=== PATIENT | female | born 1945 | race Caucasian/White ===

== ENCOUNTER → 2017-05-29 | Outpatient (CLI) | payer OTHER, MEDICARE | END | disposition home or self-care (01) | LOC: RAH 12:09 | PROVIDERS: ATTEND Family Medicine | DX: Z12.31 Encounter for screening mammogram for malignant neoplasm of breast (principal) | CPT/HCPCS: 77067 ==

== ENCOUNTER → 2019-04-13 | Outpatient (CLI) | payer OTHER, MEDICARE | END | disposition home or self-care (01) | LOC: RAH 10:31 | PROVIDERS: ATTEND Family Medicine | DX: Z12.31 Encounter for screening mammogram for malignant neoplasm of breast (principal) | CPT/HCPCS: 77067 ==

== ENCOUNTER 2020-08-19 07:30 | Emergency (ER) | payer OTHER, MEDICARE ==
[2020-08-19] MEDS ORDERED: FAMOTIDINE/PF 20 MG/2 ML VIAL IV ONE (08:20)
[2020-08-19] MEDS ORDERED: DiphenhydrAMINE HCL 50 MG/ML VIAL ONE (08:20)
[2020-08-19] MEDS ORDERED: METHYLPREDNISOLONE SOD SUCC 125MG/2ML VIAL ONE (08:20)
== END 2020-08-19 10:11 | disposition home or self-care (01) ==
LOC: EDH 07:30
DX: T78.49XA Other allergy, initial encounter (principal); Z98.51 Tubal ligation status; Z90.710 Acquired absence of both cervix and uterus; X58.XXXA Exposure to other specified factors, initial encounter
CPT/HCPCS: 82948; 96374; 96375; 99284; J1200; J2930; J3490

== ENCOUNTER → 2021-09-25 | Outpatient (CLI) | payer OTHER, MEDICARE | END | disposition home or self-care (01) | LOC: RAH 09:18 | PROVIDERS: ATTEND Family Medicine | DX: Z12.31 Encounter for screening mammogram for malignant neoplasm of breast (principal) | CPT/HCPCS: 77067 ==

== ENCOUNTER 2022-05-28 06:33 | Inpatient (IN) | payer OTHER, MEDICARE ==
[2022-05-28] VITALS (52 sets, daily range): BP systolic 78–126; BP diastolic 32–65
[~2022-05-28] VITALS: Ht 160 cm; Wt 81.6 kg
[2022-05-28] MEDS ORDERED: 0.9%NACL 1000ML 1,000 ML IV ONE ×3 (06:55→08:00)
[2022-05-28] MEDS ORDERED: ONDANSETRON 4MG INJ ONE (06:55)
[2022-05-28] MEDS ORDERED: ACETAMINOPHEN 325 MG TAB ONE (06:55)
[2022-05-28 06:59] LABS: BASOPHILS % (AUTO) 0.4 % (0.0-5.0); EOSINOPHILS % (AUTO) 2.5 % (0.0-8.0); HEMATOCRIT 40.2 % (36-48); LYMPHOCYTES % (AUTO) 17.6 % (21.0-51.0); MEAN CORPUSCULAR HEMOGLOBIN 28.4 pg (27.0-33.0); MEAN CORPUSCULAR HGB CONC 32.3 g/dL (32.0-36.0); MONOCYTES % (AUTO) 2.3 % (3.0-13.0); PLATELET COUNT (AUTO) 157 K/uL (130-400); RED BLOOD CELL COUNT(AUTO) 4.57 MIL/uL (4.00-5.50); RED CELL DISTRIBUTION WIDTH 14.4 % (11.0-15.5); WHITE BLOOD COUNT (AUTO) 5.2 K/uL (4.8-10.8)
[2022-05-28 07:01] LABS: APPEARANCE,URINE CLOUDY (CLEAR); BILIRUBIN,URINE NEGATIVE (NEGATIVE); COLOR,URINE LIGHT-YELLOW (YELLOW); GLUCOSE, URINE (UA) NEGATIVE (NEGATIVE); KETONES,URINE NEGATIVE (NEGATIVE); LEUKOCYTE ESTERASE ,URINE 500 Leu/uL (NEGATIVE); NITRATE,URINE 2+ (NEGATIVE); OCCULT BLOOD,URINE MODERATE (NEGATIVE); PROTEIN,URINE NEGATIVE (NEGATIVE); UROBILINOGEN,URINE 0.2 mg/dL (0.2-1.0)
[2022-05-28 07:19] LABS: BACTERIA,URINE MANY /HPF (None Seen); MUCUS,URINE RARE LPF (None Seen); SQUAMOUS EPITHELIAL CELL,UR RARE /HPF (0-2); WBC,URINE 26-50 /HPF (0-1)
[2022-05-28 07:19] LABS: ALBUMIN 4.1 g/dL (3.5-5.0); CREATININE 0.9 mg/dL (0.5-1.5); TOTAL PROTEIN, SERUM 7.4 g/dL (6.0-8.3)
[2022-05-28 07:30] LABS: INR 0.99 (0.85-1.15); PROTHROMBIN TIME 10.8 SEC (9.6-11.6)
[2022-05-28] MEDS ORDERED: KETOROLAC 30MG VIAL (30MG/ML) IVP STA (08:26)
[2022-05-28] MEDS ORDERED: MORPHINE 4 MG SYG IVP ONE (09:30)
[2022-05-28] MEDS ORDERED: TAMSULOSIN HCL 0.4 MG CAP.ER.24H PO SCH ×2 (09:30→10:00)
[2022-05-28] MEDS ORDERED: ONDANSETRON 4MG INJ IVP ONE (09:30)
[2022-05-28] MEDS ORDERED: ZOSYN 3.375GM +NS 50ML IV ONE (09:30)
[2022-05-28] MEDS ORDERED: HYDRALAZINE 20MG/ML VIAL IV PRN (10:00)
[2022-05-28] MEDS ORDERED: 0.9%NACL 1000ML 1,095 ML IV ONE (10:00)
[2022-05-28] MEDS ORDERED: CLONIDINE HCL 0.1 MG TABLET PO PRN (10:00)
[2022-05-28] MEDS ORDERED: ONDANSETRON 4MG INJ IVP PRN (10:00)
[2022-05-28] MEDS ORDERED: MORPHINE 2 MG SYG IVP PRN (10:00)
[2022-05-28] MEDS ORDERED: POTASSIUM PHOS 15 mMOL+NS250ML IV SCH (10:00)
[2022-05-28] MEDS ORDERED: LACTULOSE 20 GM/30 ML UDCUP PO PRN (10:00)
[2022-05-28] MEDS ORDERED: ACETAMINOPHEN 650 MG SUPPOSITORY RC PRN (10:00)
[2022-05-28] MEDS ORDERED: TEMAZEPAM 15 MG CAPSULE PO PRN (10:00)
[2022-05-28] MEDS ORDERED: MORPHINE 4 MG SYG IVP PRN (10:00)
[2022-05-28] MEDS: LACTATED RINGERS 1000ML 1,000 ML IV SCH ×2 (10:30→20:21)
[2022-05-28] MEDS ORDERED: IOHEXOL-350 50ML VIAL IV ONE (15:55)
[2022-05-28] MEDS ORDERED: PROPOFOL 10 MG/ML 20ML VIAL IV ONE (15:58)
[2022-05-28] MEDS ORDERED: FENTANYL CITRATE PF 50 MCG/1 ML 2ML VIAL ONE ×2 (15:58→16:48)
[2022-05-28] MEDS ORDERED: MIDAZOLAM HCL 1 MG/ML 2ML VIAL ONE (15:58)
[2022-05-28] MEDS ORDERED: ROCURONIUM 10MG/1ML SYR 10 MG/ML ML ONE (16:15)
[2022-05-28] MEDS ORDERED: PHENYLEPHRINE HCL 10 MG/ML 1ML VIAL IV ONE (16:19)
[2022-05-28] MEDS ORDERED: VASOPRESSIN 20 UNITS/ML 1ML VIAL ONE (16:34)
[2022-05-28] MEDS ORDERED: NEOSTIGMINE 5MG/5ML SYR IV ONE (16:43)
[2022-05-28] MEDS ORDERED: GLYCOPYRROLATE 1 MG/5 ML SYRINGE ONE (16:43)
[2022-05-28 16:44] LABS: ABG BASE EXCESS -7.1 mmol/L (-2.0-3.0); ABG HCO3 18.2 mmol/L (21.0-28.0); ABG OXYGEN SATURATION 96.8 % (95.0-99.0); ABG PCO2 36 mmHg (32-45)
[2022-05-28] MEDS ORDERED: KETOROLAC 15MG/ML VIAL (15MG/ML) ONE (17:01)
[2022-05-28] MEDS ORDERED: POTASSIUM CHLORIDE 20MEQ/100ML 100 ML IV PRN (17:30)
[2022-05-28] MEDS ORDERED: LIDOCAINE HCL-MPF 1% 2ML VIAL IV PRN ×2 (17:30)
[2022-05-28] MEDS ORDERED: KCL 20 MEQ ERTAB PO PRN (17:30)
[2022-05-28] MEDS ORDERED: NOREPINEPHRIN 4MG/NS 250ML 250 ML IV SCH (17:30)
[2022-05-28] MEDS: ZOSYN 3.375GM +NS 50ML IV SCH (17:45)
[2022-05-28 18:06] LABS: BASOPHILS % (AUTO) 0.2 % (0.0-5.0); EOSINOPHILS % (AUTO) 0.2 % (0.0-8.0); HEMATOCRIT 30.5 % (36-48); LYMPHOCYTES % (AUTO) 7.1 % (21.0-51.0); MEAN CORPUSCULAR HEMOGLOBIN 28.5 pg (27.0-33.0); MEAN CORPUSCULAR HGB CONC 31.5 g/dL (32.0-36.0); MEAN CORPUSCULAR VOLUME 90.5 fL (79-99); MONOCYTES % (AUTO) 10.2 % (3.0-13.0); NEUTROPHILS % (AUTO) 81.3 % (40.0-77.0); PLATELET COUNT (AUTO) 108 K/uL (130-400); RED BLOOD CELL COUNT(AUTO) 3.37 MIL/uL (4.00-5.50); RED CELL DISTRIBUTION WIDTH 14.5 % (11.0-15.5); WHITE BLOOD COUNT (AUTO) 5.2 K/uL (4.8-10.8)
[2022-05-28 18:25] LABS: CREATININE 0.9 mg/dL (0.5-1.5); POTASSIUM 3.6 mmol/L (3.5-5.1)
[2022-05-28 18:29] LABS: ALBUMIN 2.6 g/dL (3.5-5.0)
[2022-05-28 19:10] LABS: ABG BASE EXCESS -6.9 mmol/L (-2.0-3.0); ABG HCO3 17.7 mmol/L (21.0-28.0); ABG OXYGEN SATURATION 99.4 % (95.0-99.0); ABG PCO2 33 mmHg (32-45)
[2022-05-28] MEDS ORDERED: SODIUM BICARB 50MEQ 50ML VIAL IV STA (19:18)
[2022-05-28] MEDS ORDERED: SODIUM BICARB 50MEQ 50ML VIAL IV PRN (19:30)
[2022-05-28] MEDS: NOREPINEPHRIN 4MG/NS 250ML 250 ML IV SCH (20:20)
[2022-05-28] MEDS ORDERED: CALCIUM GLUC 1GM/10ML VIAL ONE ×2 (20:42→20:43)
[2022-05-28] MEDS: CALCIUM GLUC 1GM 1 GM in 0.9%NACL 100ML 100 ML IV SCH ×2 (20:52→22:27)
[2022-05-28] MEDS ORDERED: 0.9%NACL 100ML 200 ML ONE (20:54)
[2022-05-28] MEDS ORDERED: HYDROCORTISONE SOD SUCCINATE 100 MG/2 ML VIAL IV SCH (23:30)
[2022-05-29] VITALS (69 sets, daily range): BP systolic 88–135; BP diastolic 30–111
[2022-05-29] MEDS: ZOSYN 3.375GM +NS 50ML IV SCH ×3 (02:35→20:28)
[2022-05-29 03:33] LABS: BASOPHILS % (AUTO) 0.3 % (0.0-5.0); EOSINOPHILS % (AUTO) 0.2 % (0.0-8.0); HEMATOCRIT 32.4 % (36-48); LYMPHOCYTES % (AUTO) 8.3 % (21.0-51.0); MEAN CORPUSCULAR HEMOGLOBIN 28.5 pg (27.0-33.0); MEAN CORPUSCULAR HGB CONC 31.8 g/dL (32.0-36.0); MEAN CORPUSCULAR VOLUME 89.5 fL (79-99); MONOCYTES % (AUTO) 9.2 % (3.0-13.0); NEUTROPHILS % (AUTO) 81.7 % (40.0-77.0); PLATELET COUNT (AUTO) 138 K/uL (130-400); RED BLOOD CELL COUNT(AUTO) 3.62 MIL/uL (4.00-5.50); RED CELL DISTRIBUTION WIDTH 14.7 % (11.0-15.5); WHITE BLOOD COUNT (AUTO) 10.8 K/uL (4.8-10.8)
[2022-05-29 03:52] LABS: CREATININE 0.9 mg/dL (0.5-1.5); MAGNESIUM 1.2 mg/dL (1.80-2.40); PHOSPHORUS 3.5 mg/dL (2.5-4.9); POTASSIUM 3.7 mmol/L (3.5-5.1)
[2022-05-29] MEDS: LACTATED RINGERS 1000ML 1,000 ML IV SCH ×3 (04:21→19:41)
[2022-05-29] MEDS: NOREPINEPHRIN 4MG/NS 250ML 250 ML IV SCH ×2 (05:07→15:45)
[2022-05-29] MEDS: ACETAMINOPHEN 325 MG TAB PO PRN ×3 (05:17→23:56)
[2022-05-29] MEDS: MAGNESIUM 2GM PREMIX 50ML 50 ML IV PRN (05:46)
[2022-05-29] MEDS ORDERED: HYDROCORTISONE SOD SUCCINATE 100 MG/2 ML VIAL IM SCH (06:00)
[2022-05-29] MEDS: HYDROCORTISONE SOD SUCCINATE 100 MG/2 ML VIAL IV SCH ×4 (06:58→23:47)
[2022-05-29 07:21] LABS: ABG BASE EXCESS -4.7 mmol/L (-2.0-3.0); ABG HCO3 19.4 mmol/L (21.0-28.0); ABG PCO2 32 mmHg (32-45)
[2022-05-29] MEDS: ENOXAPARIN SODIUM 40 MG/0.4 ML SYRINGE SQ SCH (08:50)
[2022-05-29] MEDS: PANTOPRAZOLE 40 MG TAB DR PO SCH (08:50)
[2022-05-29] MEDS: TAMSULOSIN HCL 0.4 MG CAP.ER.24H PO SCH (08:51)
[2022-05-29] MEDS: POLYETHYLENE GLYCOL 3350 17 GM POWD.PACK PO SCH (08:51)
[2022-05-29] MEDS ORDERED: DEXTROSE 50%-WATER 50 ML DISP.SYRIN IV PRN (09:00)
[2022-05-29] MEDS ORDERED: GLUCAGON 1MG KIT 1 MG ML IM PRN (09:00)
[2022-05-29] MEDS ORDERED: INSULIN GLARGINE 100 UNITS/ML 10 ML VIAL SQ SCH (09:02)
[2022-05-29] MEDS: INSULIN HUMULIN R 100 UNIT/ML 3ML SQ SCH ×3 (11:27→20:39)
[2022-05-29] MEDS: INSULIN GLARGINE 100 UNITS/ML 10 ML VIAL SQ SCH (20:39)
[2022-05-30] VITALS (41 sets, daily range): BP systolic 88–147; BP diastolic 42–86
[2022-05-30] MEDS: LACTATED RINGERS 1000ML 1,000 ML IV SCH ×2 (00:55→09:20)
[2022-05-30 03:52] LABS: BASOPHILS % (AUTO) 0.2 % (0.0-5.0); LYMPHOCYTES % (AUTO) 10.4 % (21.0-51.0); MEAN CORPUSCULAR HEMOGLOBIN 28.8 pg (27.0-33.0); MEAN CORPUSCULAR HGB CONC 32.1 g/dL (32.0-36.0); MEAN CORPUSCULAR VOLUME 89.7 fL (79-99); MONOCYTES % (AUTO) 7.9 % (3.0-13.0); NEUTROPHILS % (AUTO) 80.1 % (40.0-77.0); PLATELET COUNT (AUTO) 135 K/uL (130-400); RED BLOOD CELL COUNT(AUTO) 3.68 MIL/uL (4.00-5.50); WHITE BLOOD COUNT (AUTO) 9.4 K/uL (4.8-10.8)
[2022-05-30 04:09] LABS: CREATININE 0.9 mg/dL (0.5-1.5); PHOSPHORUS 2.4 mg/dL (2.5-4.9); POTASSIUM 3.6 mmol/L (3.5-5.1)
[2022-05-30] MEDS: ZOSYN 3.375GM +NS 50ML IV SCH ×2 (04:41→12:01)
[2022-05-30] MEDS: HYDROCORTISONE SOD SUCCINATE 100 MG/2 ML VIAL IV SCH ×2 (05:45→12:01)
[2022-05-30] MEDS: INSULIN GLARGINE 100 UNITS/ML 10 ML VIAL SQ SCH ×2 (05:46→21:29)
[2022-05-30] MEDS: INSULIN HUMULIN R 100 UNIT/ML 3ML SQ SCH ×4 (05:47→21:30)
[2022-05-30] MEDS: TAMSULOSIN HCL 0.4 MG CAP.ER.24H PO SCH (08:53)
[2022-05-30] MEDS: PANTOPRAZOLE 40 MG TAB DR PO SCH (08:53)
[2022-05-30] MEDS: ENOXAPARIN SODIUM 40 MG/0.4 ML SYRINGE SQ SCH (08:53)
[2022-05-30] MEDS: POLYETHYLENE GLYCOL 3350 17 GM POWD.PACK PO SCH (08:54)
[2022-05-30] MEDS ORDERED: METF-446 PO (16:35)
[2022-05-30] MEDS ORDERED: LOSA100T58 PO (16:35)
[2022-05-30] MEDS ORDERED: LATA2.5D14 OP (16:35)
[2022-05-30] MEDS ORDERED: GLIP5TAB11 PO (16:35)
[2022-05-30] MEDS ORDERED: ROSU10TA28 PO (16:35)
[2022-05-30] MEDS ORDERED: FUROSEMIDE 20MG VIAL IV ONE (16:45)
[2022-05-30] MEDS: CEFTRIAXONE 2GM VIAL IVP SCH (17:13)
[2022-05-31] VITALS (53 sets, daily range): BP systolic 87–153; BP diastolic 41–94
[2022-05-31] MEDS ORDERED: DILTIAZEM 25MG INJ IVP ONE (02:30)
[2022-05-31] MEDS ORDERED: DILTIAZEM 125 MG/25 ML INJ IV ONE (03:24)
[2022-05-31] MEDS ORDERED: 0.9%NACL 100ML 100 ML ONE (03:24)
[2022-05-31] MEDS ORDERED: DILTIAZEM 125 MG/25 ML INJ 125 MG in 0.9%NACL 100ML 100 ML IV PRN (03:30)
[2022-05-31] MEDS ORDERED: LACTATED RINGERS 1000ML 1,000 ML IV ONE (06:06)
[2022-05-31] MEDS: INSULIN HUMULIN R 100 UNIT/ML 3ML SQ SCH ×4 (06:28→21:38)
[2022-05-31 07:13] LABS: BASOPHILS % (AUTO) 0.4 % (0.0-5.0); EOSINOPHILS % (AUTO) 2.8 % (0.0-8.0); HEMATOCRIT 32.8 % (36-48); LYMPHOCYTES % (AUTO) 25.4 % (21.0-51.0); MEAN CORPUSCULAR HEMOGLOBIN 28.4 pg (27.0-33.0); MEAN CORPUSCULAR HGB CONC 32.3 g/dL (32.0-36.0); MEAN CORPUSCULAR VOLUME 87.9 fL (79-99); MONOCYTES % (AUTO) 10.3 % (3.0-13.0); NEUTROPHILS % (AUTO) 60.9 % (40.0-77.0); PLATELET COUNT (AUTO) 129 K/uL (130-400); RED BLOOD CELL COUNT(AUTO) 3.73 MIL/uL (4.00-5.50); RED CELL DISTRIBUTION WIDTH 14.9 % (11.0-15.5)
[2022-05-31] MEDS: LACTATED RINGERS 1000ML IV SCH (07:21)
[2022-05-31 07:26] LABS: CREATININE 0.8 mg/dL (0.5-1.5); MAGNESIUM 1.7 mg/dL (1.80-2.40); PHOSPHORUS 2.3 mg/dL (2.5-4.9)
[2022-05-31] MEDS: INSULIN GLARGINE 100 UNITS/ML 10 ML VIAL SQ SCH ×2 (07:32→21:39)
[2022-05-31] MEDS: TAMSULOSIN HCL 0.4 MG CAP.ER.24H PO SCH (07:35)
[2022-05-31] MEDS: PANTOPRAZOLE 40 MG TAB DR PO SCH (07:35)
[2022-05-31] MEDS: ENOXAPARIN SODIUM 40 MG/0.4 ML SYRINGE SQ SCH (07:36)
[2022-05-31] MEDS: POLYETHYLENE GLYCOL 3350 17 GM POWD.PACK PO SCH (07:37)
[2022-05-31] MEDS ORDERED: AMIODARONE 150MG VIAL 150 MG in DEXTROSE 5%-WATER 100 ML IV SCH ×4 (08:00)
[2022-05-31] MEDS ORDERED: AMIODARONE 900MG VIAL 360 MG in DEXTROSE 5%-WATER 200 ML IV SCH (08:00)
[2022-05-31] MEDS ORDERED: AMIODARONE 900MG VIAL 150 MG in DEXTROSE 5%-WATER 100 ML IV SCH (08:00)
[2022-05-31] MEDS: MAGNESIUM 2GM PREMIX 50ML 50 ML IV PRN ×2 (09:04→22:02)
[2022-05-31] MEDS: POTASSIUM CHLORIDE 20MEQ/100ML 100 ML IV PRN ×3 (09:05→17:51)
[2022-05-31] MEDS: ACETAMINOPHEN 325 MG TAB PO PRN (13:22)
[2022-05-31] MEDS: AMIODARONE 900MG VIAL 540 MG in DEXTROSE 5%-WATER 300 ML IV SCH (14:33)
[2022-05-31] MEDS: CEFTRIAXONE 2GM VIAL IVP SCH (15:25)
[2022-05-31] MEDS: CALCIUM GLUC 1GM 1 GM in 0.9%NACL 100ML 100 ML IV SCH ×2 (18:30→18:52)
[2022-05-31 20:51] LABS: MAGNESIUM 1.7 mg/dL (1.80-2.40); POTASSIUM 3.7 mmol/L (3.5-5.1)
[2022-05-31 22:08] LABS: CREATINE KINASE, TOTAL 30 U/L (21-232); MYOGLOBIN 21 ng/mL (10-92)
[2022-06-01] VITALS (17 sets, daily range): BP systolic 112–161; BP diastolic 56–93
[2022-06-01] MEDS: AMIODARONE 900MG VIAL 540 MG in DEXTROSE 5%-WATER 300 ML IV SCH ×2 (02:37→21:14)
[2022-06-01 04:11] LABS: BASOPHILS % (AUTO) 0.6 % (0.0-5.0); EOSINOPHILS % (AUTO) 5.3 % (0.0-8.0); HEMATOCRIT 31.4 % (36-48); MEAN CORPUSCULAR HEMOGLOBIN 28.8 pg (27.0-33.0); MEAN CORPUSCULAR HGB CONC 33.1 g/dL (32.0-36.0); MONOCYTES % (AUTO) 12.8 % (3.0-13.0); NEUTROPHILS % (AUTO) 50.7 % (40.0-77.0); PLATELET COUNT (AUTO) 126 K/uL (130-400); RED BLOOD CELL COUNT(AUTO) 3.61 MIL/uL (4.00-5.50); RED CELL DISTRIBUTION WIDTH 14.7 % (11.0-15.5); WHITE BLOOD COUNT (AUTO) 3.6 K/uL (4.8-10.8)
[2022-06-01 04:23] LABS: CREATININE 0.8 mg/dL (0.5-1.5); MAGNESIUM 1.9 mg/dL (1.80-2.40); PHOSPHORUS 3.4 mg/dL (2.5-4.9); POTASSIUM 3.8 mmol/L (3.5-5.1)
[2022-06-01] MEDS ORDERED: IOHEXOL 350 MG/ML 100ML INFUS..BTL IV ONE (04:25)
[2022-06-01] MEDS: LACTATED RINGERS 1000ML IV SCH (05:23)
[2022-06-01] MEDS: POTASSIUM CHLORIDE 10% ELIXIR 20 MEQ/15 ML UDCUP PO PRN (06:17)
[2022-06-01] MEDS: MAGNESIUM 2GM PREMIX 50ML 50 ML IV PRN (06:18)
[2022-06-01] MEDS: INSULIN GLARGINE 100 UNITS/ML 10 ML VIAL SQ SCH ×2 (06:29→21:26)
[2022-06-01] MEDS: INSULIN HUMULIN R 100 UNIT/ML 3ML SQ SCH ×4 (06:31→21:27)
[2022-06-01] MEDS: PANTOPRAZOLE 40 MG TAB DR PO SCH (08:24)
[2022-06-01] MEDS: ENOXAPARIN SODIUM 40 MG/0.4 ML SYRINGE SQ SCH (08:24)
[2022-06-01] MEDS: POLYETHYLENE GLYCOL 3350 17 GM POWD.PACK PO SCH (08:24)
[2022-06-01] MEDS: TAMSULOSIN HCL 0.4 MG CAP.ER.24H PO SCH (08:24)
[2022-06-01] MEDS ORDERED: MAGNESIUM 2GM PREMIX 50ML 50 ML IV SCH (16:00)
[2022-06-01] MEDS: CEFTRIAXONE 2GM VIAL IVP SCH (16:21)
[2022-06-01] MEDS: ACETAMINOPHEN 325 MG TAB PO PRN (21:14)
[2022-06-02] VITALS: BP 129/61
[2022-06-02 04:00] VITALS: BP 133/69
[2022-06-02 04:12] LABS: HEMATOCRIT 31.1 % (36-48); MEAN CORPUSCULAR HEMOGLOBIN 28.8 pg (27.0-33.0); MEAN CORPUSCULAR HGB CONC 32.5 g/dL (32.0-36.0); MEAN CORPUSCULAR VOLUME 88.6 fL (79-99); RED BLOOD CELL COUNT(AUTO) 3.51 MIL/uL (4.00-5.50); RED CELL DISTRIBUTION WIDTH 14.6 % (11.0-15.5); WHITE BLOOD COUNT (AUTO) 3.3 K/uL (4.8-10.8)
[2022-06-02 04:34] LABS: ALBUMIN 2.4 g/dL (3.5-5.0); CREATININE 0.7 mg/dL (0.5-1.5); MAGNESIUM 1.5 mg/dL (1.80-2.40); POTASSIUM 3.2 mmol/L (3.5-5.1); TOTAL PROTEIN, SERUM 5.4 g/dL (6.0-8.3)
[2022-06-02] MEDS: LACTATED RINGERS 1000ML IV SCH (05:29)
[2022-06-02] MEDS: POTASSIUM CHLORIDE 10% ELIXIR 20 MEQ/15 ML UDCUP PO PRN (05:30)
[2022-06-02] MEDS: INSULIN GLARGINE 100 UNITS/ML 10 ML VIAL SQ SCH (06:47)
[2022-06-02] MEDS: INSULIN HUMULIN R 100 UNIT/ML 3ML SQ SCH ×2 (06:48→11:06)
[2022-06-02 07:54] VITALS: BP 156/71
[2022-06-02] MEDS: TAMSULOSIN HCL 0.4 MG CAP.ER.24H PO SCH (08:59)
[2022-06-02] MEDS ORDERED: CEFTRIAXONE 2GM VIAL IVP SCH (09:00)
[2022-06-02] MEDS: PANTOPRAZOLE 40 MG TAB DR PO SCH (09:00)
[2022-06-02] MEDS: ENOXAPARIN SODIUM 40 MG/0.4 ML SYRINGE SQ SCH (09:00)
[2022-06-02 11:00] VITALS: BP 147/82
[2022-06-02] MEDS ORDERED: ENOXAPARIN SODIUM 80 MG/0.8 ML SQ SCH (21:00)
[2022-06-02] MEDS ORDERED: METOPROLOL TARTRATE 25 MG TAB PO SCH (21:00)
== END 2022-06-02 13:10 | DRG 853 ==
LOC: EDH 06:33 → EDHIP 09:36 → OBSVTOIN 09:36 → 3CH 12:20 → 2AH 18:58 → 2CH 19:50 → 3AH 05-30 16:34 → 2AH 05-31 03:30 → 2BH 05-31 08:00
PROVIDERS: ADMIT Internal Medicine Critical Care Medicine; ATTEND Internal Medicine Critical Care Medicine
PROC: 0T778DZ Dilation of Left Ureter with Intraluminal Device, Via Natural or Artificial Opening Endoscopic (ICD-10-PCS; principal; 2022-05-28 16:11)
DX: A41.51 Sepsis due to Escherichia coli [E. coli] (principal); R65.21 Severe sepsis with septic shock; U07.1 COVID-19; N13.6 Pyonephrosis; D64.9 Anemia, unspecified; D69.6 Thrombocytopenia, unspecified; E11.65 Type 2 diabetes mellitus with hyperglycemia; E66.01 Morbid (severe) obesity due to excess calories; E78.00 Pure hypercholesterolemia, unspecified; E83.42 Hypomagnesemia; E87.6 Hypokalemia; I10 Essential (primary) hypertension; I48.0 Paroxysmal atrial fibrillation; K74.60 Unspecified cirrhosis of liver; Z83.3 Family history of diabetes mellitus; Z85.41 Personal history of malignant neoplasm of cervix uteri; Z90.710 Acquired absence of both cervix and uterus; Z68.31 Body mass index [BMI] 31.0-31.9, adult
CPT/HCPCS: 36415; 36600; 71045; 71270; 74018; 74176; 80048; 80053; 81001; 82435; 82550; 82803; 82947; 82948; 83605; 83735; 83874; 84100; 84132; 84295; 84484; 85018; 85025; 85027; 85378; 85610; 85730; 87040; 87077; 87088; 87186; 87635; 87804; 93005; 93306; 93356; 93970; 96361; 96374; 96375; C1751; C1894; C9803; G0378; J0282; J0610; J0696; J1650; J1720; J1815; J1885; J1940; J2250; J2270; J2370; J2405; J2543; J2704; J2710; J3010; J3475; J3480; J3490; J7030; J7060; J7120; Q9967

== ENCOUNTER 2022-06-30 16:31 | Observation (INO) | payer OTHER, MEDICARE ==
[~2022-06-30] VITALS: Ht 157.5 cm; Wt 68.6 kg
[~2022-06-30 16:31] MED LIST: ACET325T51 PO; AMOX-426 PO; CEFX2I IV; CLON0.1T PO; GLIP5TAB11 PO; LACT10SO9 PO; LATA2.5D14 OU; LOSA100T58 PO; METF-446 PO; METO25TA6 PO; ONDA4TAB10 PO; PANT40TA PO; ROSU10TA28 PO; TAMS-1 PO
[2022-06-30 19:00] LABS: EOSINOPHILS % (AUTO) 3.7 % (0.0-8.0); HEMATOCRIT 36.1 % (36-48); LYMPHOCYTES % (AUTO) 27.5 % (21.0-51.0); MEAN CORPUSCULAR HEMOGLOBIN 27.7 pg (27.0-33.0); MEAN CORPUSCULAR HGB CONC 31.6 g/dL (32.0-36.0); MEAN CORPUSCULAR VOLUME 87.6 fL (79-99); MONOCYTES % (AUTO) 11.9 % (3.0-13.0); NEUTROPHILS % (AUTO) 55.6 % (40.0-77.0); PLATELET COUNT (AUTO) 199 K/uL (130-400); RED BLOOD CELL COUNT(AUTO) 4.12 MIL/uL (4.00-5.50); RED CELL DISTRIBUTION WIDTH 13.6 % (11.0-15.5); WHITE BLOOD COUNT (AUTO) 5.9 K/uL (4.8-10.8)
[2022-06-30 19:03] LABS: APPEARANCE,URINE CLEAR (CLEAR); BILIRUBIN,URINE NEGATIVE (NEGATIVE); COLOR,URINE LIGHT-YELLOW (YELLOW); GLUCOSE, URINE (UA) NEGATIVE (NEGATIVE); KETONES,URINE NEGATIVE (NEGATIVE); LEUKOCYTE ESTERASE ,URINE NEGATIVE Leu/uL (NEGATIVE); NITRATE,URINE NEGATIVE (NEGATIVE); OCCULT BLOOD,URINE NEGATIVE (NEGATIVE); PH,URINE 6.5 (5.0-8.0); PROTEIN,URINE NEGATIVE (NEGATIVE); UROBILINOGEN,URINE 0.2 mg/dL (0.2-1.0)
[2022-06-30 19:16] LABS: CREATININE 0.8 mg/dL (0.5-1.5); POTASSIUM 4.1 mmol/L (3.5-5.1)
[2022-06-30 19:22] LABS: RBC,URINE 0-1 /HPF (0-1); SQUAMOUS EPITHELIAL CELL,UR RARE /HPF (0-2)
[2022-06-30 19:25] LABS: ALBUMIN 3.7 g/dL (3.5-5.0); TOTAL PROTEIN, SERUM 7.5 g/dL (6.0-8.3)
[2022-06-30] MEDS ORDERED: ONDANSETRON 4MG INJ IVP ONE ×2 (19:30→23:30)
[2022-06-30] MEDS ORDERED: LACTATED RINGERS 1000ML 1,000 ML IV ONE (19:30)
[2022-06-30] MEDS ORDERED: IOHEXOL 350 MG/ML 100ML INFUS..BTL IV ONE (20:05)
[2022-06-30] MEDS ORDERED: CEFTRIAXONE 1G VIAL IVP ONE (23:30)
[2022-07-01] MEDS ORDERED: ACETAMINOPHEN 325 MG TAB PO PRN (02:00)
[2022-07-01] MEDS ORDERED: LACTATED RINGERS 1000ML 1,000 ML IV SCH (02:00)
[2022-07-01] MEDS ORDERED: CEFTRIAXONE 1G VIAL IV SCH (02:00)
[2022-07-01] MEDS ORDERED: ALBUTEROL 0.083% 2.5 MG/3 ML INH IH PRN (02:00)
[2022-07-01 02:18] LABS: EOSINOPHILS % (AUTO) 5.1 % (0.0-8.0); HEMATOCRIT 32.5 % (36-48); LYMPHOCYTES % (AUTO) 34.9 % (21.0-51.0); MEAN CORPUSCULAR HEMOGLOBIN 27.7 pg (27.0-33.0); MEAN CORPUSCULAR HGB CONC 32.3 g/dL (32.0-36.0); MEAN CORPUSCULAR VOLUME 85.8 fL (79-99); MONOCYTES % (AUTO) 13.2 % (3.0-13.0); NEUTROPHILS % (AUTO) 45.5 % (40.0-77.0); PLATELET COUNT (AUTO) 157 K/uL (130-400); RED BLOOD CELL COUNT(AUTO) 3.79 MIL/uL (4.00-5.50); RED CELL DISTRIBUTION WIDTH 13.8 % (11.0-15.5)
[2022-07-01 02:32] LABS: ALBUMIN 3.2 g/dL (3.5-5.0); CREATININE 0.7 mg/dL (0.5-1.5); MAGNESIUM 1.6 mg/dL (1.80-2.40); TOTAL PROTEIN, SERUM 6.5 g/dL (6.0-8.3)
[2022-07-01 04:55] VITALS: BP 101/62
[2022-07-01 07:00] VITALS: BP 111/64
[2022-07-01] MEDS ORDERED: PANTOPRAZOLE 40 MG TAB DR PO SCH (10:27)
[2022-07-01 10:59] VITALS: BP 114/64
[2022-07-01] MEDS ORDERED: CEPH500B PO (13:07)
[2022-07-01] MEDS ORDERED: TAMSULOSIN HCL 0.4 MG CAP.ER.24H PO SCH (21:00)
[2022-07-01] MEDS ORDERED: ATORVASTATIN 20 MG TABLET PO SCH (21:00)
[2022-07-01] MEDS ORDERED: METOPROLOL TARTRATE 25 MG TAB PO SCH (21:00)
[2022-07-01] MEDS ORDERED: LATANOPROST 2.5 ML DROPS OU SCH (21:00)
[2022-07-02] MEDS ORDERED: LOSARTAN 100 MG TABLET PO SCH (09:00)
== END 2022-07-01 16:01 | disposition home or self-care (01) ==
LOC: EDH 16:31 → EDHIP 07-01 01:58 → 3AH 07-01 04:38
PROVIDERS: ADMIT Internal Medicine; ATTEND Internal Medicine
DX: R10.9 Unspecified abdominal pain (principal); Z20.822 Contact with and (suspected) exposure to COVID-19; R11.2 Nausea with vomiting, unspecified; N12 Tubulo-interstitial nephritis, not specified as acute or chronic; N20.0 Calculus of kidney; I10 Essential (primary) hypertension; E11.9 Type 2 diabetes mellitus without complications; J18.9 Pneumonia, unspecified organism; E86.0 Dehydration; E78.00 Pure hypercholesterolemia, unspecified; K57.30 Diverticulosis of large intestine without perforation or abscess without bleeding; K59.00 Constipation, unspecified; K74.60 Unspecified cirrhosis of liver; Z87.442 Personal history of urinary calculi; Z90.49 Acquired absence of other specified parts of digestive tract; Z90.710 Acquired absence of both cervix and uterus; Z79.899 Other long term (current) drug therapy; Z98.890 Other specified postprocedural states
CPT/HCPCS: 96374; 96361 ×2; 99285; 84484; 80053 ×2; 83690; 85025 ×2; 87804 ×2; 81001; 36415 ×2; 87635; 71045; 74177; 93005; 96376; 96375; 83735; 87040 ×2; 83605; C9803; Q9967; G0378 ×14; J7120; J0696 ×3; J2405

== ENCOUNTER 2022-08-11 07:15 | Emergency (ER) | payer OTHER, MEDICARE ==
[~2022-08-11] VITALS: Ht 157.5 cm; Wt 64.9 kg
[~2022-08-11 07:15] MED LIST changes: -AMOX-426 PO; -CEFX2I IV; +CEPH500B PO
[2022-08-11 07:40] LABS: BASOPHILS % (AUTO) 0.5 % (0.0-5.0); EOSINOPHILS % (AUTO) 2.9 % (0.0-8.0); HEMATOCRIT 38.8 % (36-48); LYMPHOCYTES % (AUTO) 32.5 % (21.0-51.0); MEAN CORPUSCULAR HGB CONC 32.2 g/dL (32.0-36.0); MONOCYTES % (AUTO) 8.6 % (3.0-13.0); NEUTROPHILS % (AUTO) 55.3 % (40.0-77.0); PLATELET COUNT (AUTO) 154 K/uL (130-400); RED BLOOD CELL COUNT(AUTO) 4.46 MIL/uL (4.00-5.50); RED CELL DISTRIBUTION WIDTH 14.2 % (11.0-15.5); WHITE BLOOD COUNT (AUTO) 4.1 K/uL (4.8-10.8)
[2022-08-11 08:01] LABS: ALBUMIN 4.3 g/dL (3.5-5.0); CREATININE 0.9 mg/dL (0.5-1.5); POTASSIUM 4.4 mmol/L (3.5-5.1); TOTAL PROTEIN, SERUM 7.7 g/dL (6.0-8.3)
[2022-08-11 08:39] LABS: APPEARANCE,URINE CLEAR (CLEAR); BILIRUBIN,URINE NEGATIVE (NEGATIVE); GLUCOSE, URINE (UA) NEGATIVE (NEGATIVE); KETONES,URINE NEGATIVE (NEGATIVE); LEUKOCYTE ESTERASE ,URINE NEGATIVE Leu/uL (NEGATIVE); NITRATE,URINE NEGATIVE (NEGATIVE); OCCULT BLOOD,URINE NEGATIVE (NEGATIVE); PROTEIN,URINE NEGATIVE (NEGATIVE); UROBILINOGEN,URINE 0.2 mg/dL (0.2-1.0)
[2022-08-11 08:41] VITALS: BP 124/63
[2022-08-11 08:44] LABS: COLOR,URINE LIGHT-YELLOW (YELLOW)
== END 2022-08-11 09:19 | disposition home or self-care (01) ==
LOC: EDH 07:15
DX: R30.0 Dysuria (principal); E11.9 Type 2 diabetes mellitus without complications; E78.00 Pure hypercholesterolemia, unspecified; I10 Essential (primary) hypertension; Z79.84 Long term (current) use of oral hypoglycemic drugs; Z79.899 Other long term (current) drug therapy; Z90.710 Acquired absence of both cervix and uterus
CPT/HCPCS: 36415; 80053; 81003; 85025

== ENCOUNTER → 2023-09-04 | Outpatient (CLI) | payer OTHER, MEDICARE ==
[~2023-09-04] MED LIST changes: -GLIP5TAB11 PO; +GLIP5TAB15 PO; -LOSA100T58 PO; +LOSA100T59 PO
== END | disposition home or self-care (01) ==
LOC: RAH 10:44
PROVIDERS: ATTEND Family Medicine
DX: Z12.31 Encounter for screening mammogram for malignant neoplasm of breast (principal)
CPT/HCPCS: 77067